=== PATIENT | female | born 1960 | race Two or more races ===

== ENCOUNTER 2025-03-09 15:00 | Emergency (ER) | payer OTHER, SELFPAY ==
[2025-03-09 15:04] VITALS: BP 135/93
[2025-03-09 15:29] LABS: Hematocrit 38.0 % (37.0-47.0); Hemoglobin 12.4 g/dL (12.0-16.0); Mean Corp Hgb Conc. 32.6 g/dL (33.0-37.0); Mean Corpuscular Volume 73.1 fL (81.0-99.0); Nucleated Red Blood Cells % 0 %; Platelet Count 253 10^3/uL (130-400); Red Cell Dist. Width 14.6 % (11.5-14.5)
[2025-03-09 16:11] LABS: ALT (SGPT) 41 U/L (0-35); AST (SGOT) 37 U/L (14-36); Albumin 4.8 g/dl (3.5-5.0); Alkaline Phosphatase 64 U/L (38-126); Blood Urea Nitrogen 16 mg/dl (7-17); Calcium 9.6 mg/dl (8.4-10.2); Carbon Dioxide 24 mmol/L (22-30); Chloride 105 mmol/L (98-107); Glucose 97 mg/dl (70-99); Potassium 4.2 mmol/L (3.5-5.1); Sodium 139 mmol/L (135-145); Total Protein 7.6 g/dl (6.3-8.2); eGFR > 60.00
[2025-03-09] MEDS: ULTRAM 75 MG PO (19:01)
[2025-03-09] MEDS: VALTREX 1000 MG PO (19:01)
--- NOTE | 2025-03-09 21:09 | ED.GENMED ---
History of Present Illness
General
Chief Complaint: Skin Problem
Source: patient
Exam Limitations: none
Time Seen by Provider: 03/09/25 18:16
Nursing documentation reviewed up to this point in time: agreed with
History of Present Illness
History of Present Illness:
The patient is a pleasant 64-year-old female who reports a feeling of numbness and burning pain of her skin extending from under her left breast towards her left lateral thoracic area. Patient denies chest pain or shortness of breath. She reports
that just light touch causes the pain to worsen. Patient states that at night, her skin feels like it is burning in that area. Contrary to triage note, the patient denies any specific area of the lump. Symptoms have been going on for about 3 days.
Past History
Past History
ED Past Medical History: Hypercholesterolemia
ED Past Surgical History: Gynecological
Social History
Tobacco: Non-smoker
Alcohol: None
Drug: None
Personal: Other
Living: with family
Employment: Other
Family History
Family History: Other
Review of Systems
Review of Systems
Allergies reviewed?: Yes
All Other Systems: ROS reviewed and negative except as documented in HPI and ROS
Constitutional: Reports no symptoms
EENT: Reports no symptoms
Respiratory: Reports no symptoms
Cardiac: Reports no symptoms
ABD/GI: Reports no symptoms
: Reports no symptoms
Musculoskeletal: Reports no symptoms
Skin: Reports other (No rash but feels burning pain and numbness of skin of left thoracic area)
Neurological: Reports no symptoms
Endocrine: Reports no symptoms
Hematologic/Lymphatic: Reports no symptoms
Psychiatric: Reports no symptoms
Phy Exam
Physical Exam
Physical Exam:
Physical Exam
General: no apparent distress, not acutely ill
Neck: supple.
Heart: s1/s2 regular rate and rhythm, no murmur. equal radial pulses.
Lungs: no acute respiratory distress. clear bilaterally
Abdomen: normal bowel sounds. not tender. no CVAT
Neuro: alert and oriented. no focal neurological deficits
Skin: No palpable lumps or areas of skin erythema or rash of entire left breast area, left axilla and left thoracic area. No lymphadenopathy of left axilla.
Psychiatric: well kept. interactive and cooperative
Extremities: no edema.
Course
Orders/Labs/Results
Orders:
Orders
03/09/25 15:14
Complete Blood Count/With Diff Urgent
Comprehensive Metabolic Panel Urgent
03/09/25 18:34
Tramadol HCl [Ultram] 75 mg PO NOW STA
Valacyclovir HCl [Valtrex] 1,000 mg PO NOW STA
Abnormal Lab Results
03/09/25
15:14
MCV 73.1 L fL
(81.0-99.0)
MCH 23.8 L pg
(27.0-31.0)
MCHC 32.6 L g/dL
(33.0-37.0)
RDW 14.6 H %
(11.5-14.5)
MPV 11.7 H fL
(7.4-10.4)
AST 37 H U/L
(14-36)
ALT 41 H U/L
(0-35)
03/09/25 15:14
03/09/25 15:14
Vital Signs
Initial and Last Documented VS:
Initial Vital Signs
Temp Pulse Resp BP Pulse Ox
98.6 F 85 18 135/93 97
03/09/25 15:04 03/09/25 15:04 03/09/25 15:04 03/09/25 15:04 03/09/25 15:04
Last Documented Vital Signs
Temp Pulse Resp BP Pulse Ox
98.6 F 85 18 135/93 97
03/09/25 15:04 03/09/25 15:04 03/09/25 15:04 03/09/25 15:04 03/09/25 21:09
MDM/Problems Addressed
Differential Diagnosis Includes:
Shingles, pleurisy
MDM/Problems Addressed:
Patient complains of acute burning pain and numbness along skin of left mid thoracic area
Acute Exacerbation and/or Progression of Chronic Illness:
Patient is acutely hypertensive, however, it is only mild and I suspect it is due to anxiety and pain
Acute Exacerbation and/or Progression of Chronic Illness: HTN
*Pulse Oximetry
SaO2: 97
Oxygen Mode of Delivery: Room air
Patient hypoxic: no
Comment: 97% on room air, not hypoxic
*EKG
Interpreted by ED Provider?: NA
*Go Go Dancer Interpretation
Rate: Go Go Dancer- N/A
*Critical Care Note
Total Time (30-74mins, 75-104mins- exclusive of procedures): Not Applicable
Data Reviewed
Source: patient
Patient Management
Social determinants of health affecting care: Living situation and Strong social support
Escalation/DeEscalation of care consider admission/obs:
Patient appears well and comfortable. There is no area of skin redness, lump or abscess of breasts, chest wall, or thoracic area. I feel that patient may have developing shingles given her abnormal sensation and burning pain in a bandlike
distribution extending under her left breast towards her left mid lateral thoracic area
ED Attending Note
-
Portions of this chart may have been created with voice recognition software.� Occasional wrong word or��sound alike� substitutions may have occurred due to the inherent limitations of voice recognition software.
Discharge Plan
Departure
Patient Disposition: Home (Routine Discharge)
Date of Disposition: 03/09/25
Time of Disposition: 18:36
Patient with high blood pressure during this ER visit?: Yes
Condition: Good
Covid-19: Not Applicable
Discharge Problem:
Shingles
Instructions: Shingles, BLOOD PRESSURE
Prescriptions:
New
tramadol 25 mg tablet
50 - 75 mg PO BID PRN (Reason: Pain) Qty: 14 0RF
valacyclovir 1 gram tablet
1,000 mg PO TID Qty: 20 0RF
Activity Restrictions/Additional Instructions:
Please see your primary care doctor in 3 to 4 days to be reassessed. Although you do not have the rash, your symptoms sound consistent with a shingles infection
Interventions
Interventions:
*Risk Screen - Suicide Last Done: 03/09/25 15:04
*General Assessment Last Done: 03/09/25 15:04
*Neglect/Abuse Screening Last Done: 03/09/25 15:04
*Nursing Disposition Last Done: 03/09/25 19:16
Discharge Date and Time
Discharge Date/Time: 03/09/25 19:16
Print Language: MALTESE
== END 2025-03-09 19:16 | disposition home or self-care (01) ==
LOC: EMR 15:00
PROVIDERS: EMERGENCY PHYSICIAN Emergency Medicine; FAMILY PHYSICIAN Family Medicine
DX: B02.9 Zoster without complications (principal); E78.00 Pure hypercholesterolemia, unspecified
CPT/HCPCS: 99283; 80053; 85025